=== PATIENT | female | born 1960 | race Caucasian/White ===

== ENCOUNTER 2020-07-26 21:13 | Inpatient (IN) ==
[2020-07-26] MEDS ORDERED: NS 0.9% 1000 ml BAG 1,000 ML IV.FLUID IV ONE (21:44)
[2020-07-26] MEDS ORDERED: Metoclopramide 5 MG/ML VIAL (10 mg) IV SLOW PU ONE (21:45)
[2020-07-26 22:29] LABS: Hematocrit 33 % (35-47); Hemoglobin 11.2 g/dL (12.0-16.0); Mean Corpuscular HGB Conc 34 g/dL (31-36); Mean Corpuscular Hemoglobin 29 pg (27-31); Mean Corpuscular Volume 84 fL (80-97); Mean Platelet Volume 9.1 fL (7.4-10.4); Platelet Count 285 10^3/uL (150-450); Red Blood Count 3.92 10^6 /uL (3.70-4.87); Red Cell Distribution Width 14 % (10-15); White Blood Count 19.7 10^3/uL (3.5-10.8)
[2020-07-26 22:47] LABS: ALT 22 U/L (7-52); AST 28 U/L (13-39); Albumin 3.5 g/dL (3.2-5.2); Albumin/Globulin Ratio 1.2 (1-3); Alkaline Phosphatase 83 U/L (34-104); BUN/Creatinine Ratio 15.3 (8-20); Blood Urea Nitrogen 18 mg/dL (6-24); CO2 Carbon Dioxide 22 mmol/L (22-32); Calcium 8.4 mg/dL (8.6-10.3); Chloride 100 mmol/L (101-111); EGFR African American 56.7 (>60); EGFR Non-African American 46.9 (>60); Globulin 2.9 g/dL (2-4); Glucose 168 mg/dL (70-100); Sodium 133 mmol/L (135-145); Total Protein 6.4 g/dL (6.4-8.9)
[2020-07-26 22:50] LABS: ABS Lymphocytes 0.9 10^3/ul (1.0-4.8); ABS Monocytes 1.9 10^3/ul (0-0.8); ABS Neutrophils 16.8 10^3/ul (1.5-7.7); Lymphocyte % 4.7 %
[2020-07-26 22:58] LABS: Anion Gap 11 mmol/L (2-11); Potassium 2.7 mmol/L (3.5-5.0)
[2020-07-26] MEDS ORDERED: Potassium Chlor 20 meq TAB.ER PO ONE (23:00)
[2020-07-26] MEDS ORDERED: KCL 20 MEQ/100 ML IVPREMIX 20 MEQ/100 ML BAG IV ONE (23:00)
[2020-07-26 23:01] LABS: Urine Appearance Cloudy; Urine Bilirubin Negative (Negative); Urine Blood 2+ (Negative); Urine Color Yellow; Urine Glucose Negative (Negative); Urine Ketones 1+ (Negative); Urine Nitrite Negative (Negative); Urine Protein 2+(100 mg/dL) (Negative); Urine Specific Gravity 1.015 (1.010-1.030); Urine Urobilinogen Negative (Negative)
[2020-07-26 23:04] LABS: Urine Bacteria 3+ (Absent); Urine Red Blood Cell 3+(>10/hpf) (Absent); Urine Squamous Epithelial Cell Present (Absent); Urine White Blood Cell 3+(>20/hpf) (Absent)
[2020-07-26 23:04] LABS: Troponin I 0.03 ng/mL (<0.03)
[2020-07-26] MEDS ORDERED: Ciprofloxacin 400mg IVPREMIX 400 MG/200 ML BAG IVPB ONE (23:21)
[2020-07-27 00:49] LABS: Magnesium 1.5 mg/dL (1.9-2.7)
[2020-07-27] MEDS ORDERED: Magnesium Sulfate 2 gm BAG 2 GM/50 ML BAG IVPB ONE (01:28)
[2020-07-27] MEDS ORDERED: Metoclopramide 5 MG/ML VIAL (10 mg) IV SLOW PU ONE (04:00)
[2020-07-27 07:21] LABS: Hematocrit 32 % (35-47); Hemoglobin 10.9 g/dL (12.0-16.0); Mean Corpuscular HGB Conc 34 g/dL (31-36); Mean Corpuscular Hemoglobin 29 pg (27-31); Mean Corpuscular Volume 85 fL (80-97); Mean Platelet Volume 8.9 fL (7.4-10.4); Platelet Count 289 10^3/uL (150-450); Red Blood Count 3.79 10^6 /uL (3.70-4.87); Red Cell Distribution Width 14 % (10-15)
[2020-07-27 07:28] LABS: ABS Lymphocytes 0.9 10^3/ul (1.0-4.8); ABS Monocytes 1.9 10^3/ul (0-0.8); ABS Neutrophils 15.1 10^3/ul (1.5-7.7); Lymphocyte % 5.1 %
[2020-07-27 07:41] LABS: BUN/Creatinine Ratio 14.2 (8-20); EGFR African American 64.2 (>60); EGFR Non-African American 53.1 (>60); Potassium 2.9 mmol/L (3.5-5.0)
[2020-07-27] MEDS: NS 0.9% 1000 ml BAG 1,000 ML IV SCH (07:43)
[2020-07-27] MEDS: Enoxaparin 40 MG/0.4 ML SYR SUBCUT SCH (07:43)
[2020-07-27] MEDS ORDERED: Potassium Chlor 20 meq TAB.ER PO SCH (08:00)
[2020-07-27 08:03] LABS: Troponin I 0.04 ng/mL (<0.03)
[2020-07-27] MEDS ORDERED: Potassium Chlor 20 meq TAB.ER PO ONE ×2 (08:21→17:15)
[2020-07-27 09:28] LABS: Troponin I 0.08 ng/mL (<0.03)
[2020-07-27] MEDS: Meropenem 1 GM PREMIX(*) 1 GM/50 ML BAG IV SCH ×2 (13:33→20:02)
[2020-07-27 14:35] LABS: Troponin I 0.04 ng/mL (<0.03)
[2020-07-27 15:27] LABS: Potassium 3.1 mmol/L (3.5-5.0)
[2020-07-28] MEDS: Enoxaparin 40 MG/0.4 ML SYR SUBCUT SCH (04:40)
[2020-07-28] MEDS: Meropenem 1 GM PREMIX(*) 1 GM/50 ML BAG IV SCH ×3 (04:40→20:51)
[2020-07-28] MEDS: NS 0.9% 1000 ml BAG 1,000 ML IV SCH (06:02)
[2020-07-28 07:15] LABS: Calcium 8.3 mg/dL (8.6-10.3); EGFR African American 68.7 (>60); EGFR Non-African American 56.7 (>60); Magnesium 1.8 mg/dL (1.9-2.7); Potassium 3.2 mmol/L (3.5-5.0)
[2020-07-28 07:48] LABS: Hematocrit 29 % (35-47); Hemoglobin 9.8 g/dL (12.0-16.0); Mean Corpuscular HGB Conc 34 g/dL (31-36); Mean Corpuscular Hemoglobin 29 pg (27-31); Mean Corpuscular Volume 85 fL (80-97); Mean Platelet Volume 9.5 fL (7.4-10.4); Platelet Count 246 10^3/uL (150-450); Red Blood Count 3.43 10^6 /uL (3.70-4.87); Red Cell Distribution Width 14 % (10-15); White Blood Count 12.5 10^3/uL (3.5-10.8)
[2020-07-28] MEDS ORDERED: Potassium Chlor 20 meq TAB.ER PO ONE (09:00)
[2020-07-29] MEDS: Enoxaparin 40 MG/0.4 ML SYR SUBCUT SCH (05:17)
[2020-07-29] MEDS: Meropenem 1 GM PREMIX(*) 1 GM/50 ML BAG IV SCH ×2 (05:18→13:11)
[2020-07-29 07:58] LABS: Hematocrit 31 % (35-47); Hemoglobin 10.8 g/dL (12.0-16.0); Mean Corpuscular HGB Conc 35 g/dL (31-36); Mean Corpuscular Hemoglobin 29 pg (27-31); Mean Corpuscular Volume 83 fL (80-97); Mean Platelet Volume 9.6 fL (7.4-10.4); Platelet Count 318 10^3/uL (150-450); Red Blood Count 3.74 10^6 /uL (3.70-4.87); Red Cell Distribution Width 14 % (10-15); White Blood Count 10.4 10^3/uL (3.5-10.8)
[2020-07-29] MEDS ORDERED: KCL 20 MEQ/100 ML IVPREMIX 20 MEQ/100 ML BAG IV ONE (07:59)
[2020-07-29 08:23] LABS: BUN/Creatinine Ratio 19.8 (8-20); C Reactive Protein 228.01 mg/L (<8.01); Calcium 8.7 mg/dL (8.6-10.3); EGFR African American 81.7 (>60); EGFR Non-African American 67.5 (>60); Magnesium 1.8 mg/dL (1.9-2.7); Potassium 3.2 mmol/L (3.5-5.0)
[2020-07-29 09:50] VITALS: BP 129/69
[2020-07-29] MEDS ORDERED: Potassium Chlor 20 meq TAB.ER PO ONE (10:52)
== END 2020-07-29 15:00 | disposition home or self-care (01) | DRG 720 ==
LOC: ED 21:13 → MEDTELE 07-27 03:29
PROVIDERS: ADMIT Internal Medicine Interventional Cardiology; ATTEND Internal Medicine